=== PATIENT | female | born 1990 | race African-American/Black ===

== ENCOUNTER 2024-01-31 09:02 | Emergency (ER) | payer MEDICAID, OTHER ==
[~2024-01-31] VITALS: Ht 170.2 cm; Wt 81.0 kg
[~2024-01-31 09:02] MED LIST: PREN1TAB49 PO
[2024-01-31 09:19] VITALS: BP 122/77; PULSE 77; RESP 18; TEMP 98.5; O2SAT 100
[2024-01-31] MEDS: DIPHENHYDRAMINE 25MG CAPSULE PO NR (10:48)
[2024-01-31] MEDS: FAMOTIDINE 20MG TABLET PO SCH (10:48)
[2024-01-31] MEDS: PREDNISONE 20MG TABLET PO NR (10:48)
== END 2024-01-31 12:27 | disposition left against medical advice (07) ==
LOC: ER 09:02
DX: T78.49XA Other allergy, initial encounter (principal); Z88.0 Allergy status to penicillin; X58.XXXA Exposure to other specified factors, initial encounter
CPT/HCPCS: 99284; J7512; Q0163

== ENCOUNTER 2024-03-21 14:03 | Emergency (ER) | payer MEDICAID ==
[~2024-03-21] VITALS: Ht 170.2 cm; Wt 68.0 kg
[2024-03-21 14:07] VITALS: O2SAT 99
[2024-03-21] MEDS: PREDNISONE 20MG TABLET PO ONE (15:44)
[2024-03-21] MEDS: FAMOTIDINE 20MG TABLET PO ONE (15:44)
[2024-03-21] MEDS: DIPHENHYDRAMINE 50MG CAPSULE PO ONE (16:09)
[2024-03-21 17:15] VITALS: BP 110/70; PULSE 69; RESP 19; TEMP 36.72516; O2SAT 99
[2024-03-21] MEDS ORDERED: DIPH25CA83 MT (17:36)
[2024-03-21] MEDS ORDERED: FAMO-135 MT (17:36)
[2024-03-21] MEDS ORDERED: EPIN0.3P3 IM (17:36)
[2024-03-21] MEDS ORDERED: P20 MT (17:36)
== END 2024-03-21 17:49 | disposition home or self-care (01) ==
LOC: ER 14:03
DX: T78.40XA Allergy, unspecified, initial encounter (principal); Z88.0 Allergy status to penicillin; Z79.899 Other long term (current) drug therapy; X58.XXXA Exposure to other specified factors, initial encounter; Y93.89 Activity, other specified; Y92.89 Other specified places as the place of occurrence of the external cause; Y99.8 Other external cause status
CPT/HCPCS: 99284; Q0163; J7512; Z7610; A4663